=== PATIENT | female | born 1995 | race Caucasian/White ===

== ENCOUNTER 2017-11-15 12:18 | Emergency (ER) | payer OTHER, SELFPAY ==
[2017-11-15] VITALS (11 sets, daily range): BP systolic 96–124; BP diastolic 57–83; PULSE 70–101; RESP 14–18; TEMP 36.6; O2SAT 97–99; BMI 32.8
--- NOTE | 2017-11-15 12:27 | EKG12_ITS ---
Test Reason : DYSRHYTHMIA Blood Pressure : / mmHG Vent. Rate : 076 BPM Atrial Rate : 076 BPM P-R Int : 150 ms QRS Dur : 082 ms QT Int : 414 ms P-R-T Axes : 029 073 018 degrees QTc Int : 465 ms Normal sinus rhythm Normal ECG Confirmed by VINI OMER, PÉREZ ([id number]), editorial writer JOE BRIGHT ([id number]) on 11/17/2017 3:18:37 PM Referred By: LUPE Confirmed By:PÉREZ MARTINI MD
--- NOTE | 2017-11-15 12:35 | PCA ---
NO OLD EKG IN MUSE
[2017-11-15 12:52] LABS: Absolute Neutrophil Count 7.5 X10^3/uL (2.0-7.7); Basophil# 0.08 X10^3/uL; Basophil% 0.7 % (0-1); Eosinophil# 0.11 X10^3/uL; Hematocrit 40.1 % (37-47); Hemoglobin 13.2 g/dl (12.0-15.0); Lymphocyte % 22.1 % (19-41); Mean Corp Hgb Conc 32.9 g/gl (32-36); Mean Corpuscular Hgb 27.8 pg (27.0-32.0); Mean Corpuscular Volume 84.4 fL (81-99); Monocyte# 0.73 X10^3/uL; Monocyte% 6.7 % (0-10); Neutrophil # 7.52 X10^3/uL (2.7-7.7); Neutrophil % 69.2 % (47-70); POSITIVE COUNT NO; POSITIVE DIFFERENTIAL NO; POSITIVE MORPHOLOGY NO; Platelet Count 461 K/mm3 (150-450); RBC Distribution Width SD 39.6 fl (35.1-43.9); Red Blood Count 4.75 M/mm3 (4.2-5.4); White Blood Count 10.9 K/mm3 (4.4-11.0)
[2017-11-15 12:53] LABS: Amphetamine Urine VISTA NEGATIVE (<1000 ng/mL); Barbiturate Urine VISTA NEGATIVE (< 200 ng/mL); Benzodiazepine Urine VISTA NEGATIVE (< 200 ng/mL); Cocaine Urine VISTA NEGATIVE (< 300 ng/mL); Ecstacy Urine VISTA NEGATIVE (< 500 ng/mL); Methadone Urine VISTA NEGATIVE (< 300 ng/mL); PCP Urine VISTA NEGATIVE (< 25 ng/mL); THC Urine VISTA NEGATIVE (< 50 ng/mL); Vista UDS pH Range 6
[2017-11-15] MEDS: 0.9% Normal Saline 1,000 ML 150 ML IV ×2 (12:58→19:21)
[2017-11-15] MEDS: Ondansetron 4 MG/2 ML Vial IV (12:58)
[2017-11-15] MEDS: Activated Charcoal 50 GM/240 ML BOT PO (12:58)
[2017-11-15 13:07] LABS: ALB/GLOB Ratio 0.9 RATIO (0.9-2.4); AST(SGOT) 17 U/L (15-37); Alanine Aminotransfer ALT/SGPT 21 U/L (13-56); Albumin, Serum 3.9 g/dL (3.2-5.0); Alkaline Phosphatase 69 U/L (45-117); Anion Gap 13 (5-15); BUN 10 mg/dL (7-18); BUN/Creat Ratio 10.4 RATIO (10-20); Calcium,Total 9.3 mg/dL (8.5-10.1); Chloride 107 mmol/L (98-107); Creatinine, Serum 0.96 mg/dL (0.55-1.02); EST Glomerular Filtration Rate 78 mL/min (>60); Est Glom Filt Rate - Afr Amer 94 mL/min (>60); Estimated Creatinine Clearance 67.14 ml/min; Globulin 4.2 g/dL (2.2-4.2); Glucose 129 mg/dL (74-106); Potassium 3.4 mmol/L (3.5-5.1); Protein, Total 8.1 g/dL (6.4-8.2); Sodium Level 144 mmol/L (136-145)
[2017-11-15 13:16] LABS: Pregnancy, Serum, hCG Quali. NEGATIVE Negative (0-9 Nonpreg)
[2017-11-15 13:23] LABS: Acetaminophen (Tylenol) Level < 2.0 ug/mL (10.0-30.0); Salicylate < 1.7 mg/dL (2.8-20.0)
--- NOTE | 2017-11-15 14:34 | NURSING ---
SAMUEL, CRISIS, HERE
[2017-11-15 15:26] LABS: Red Blood Cells-Urine 0 SEEN /hpf (0-5)
[2017-11-15 15:44] LABS: Color, Urine Yellow (Yellow); Glucose, Dipstick Normal (Normal); Ketone-Dipstick 5 mg/dl (Negative); Leukocyte Esterase-Dipstick Negative /ul (Negative); Nitrite-Dipstick Negative (Negative); Occult Blood-Urine Negative /ul (Negative); Protein-Dipstick 30 mg/dl (Negative); Specific Gravity, Urine 1.025 (1.002-1.030); Urine Bilirubin Dipstick Negative (Negative); Urine Clarity Cloudy (Clear); Urine Urobilinogen 4 mg/dl (Normal)
[2017-11-15 15:54] LABS: Mucous, Urine 2+ /hpf (<or=2+)
[2017-11-15 15:55] LABS: Hyaline Cast 0-5 SEEN /lpf (0-5)
[2017-11-15 15:56] LABS: Bacteria 2+ /hpf (None Seen); Squamous Epithelial Cells - UA 5-10 SEEN /hpf (5-10)
[2017-11-15 15:57] LABS: Calcium Oxalate Crystals Ur 1+ /hpf (<or=2+); White Blood Cells 0-5 SEEN /hpf (0-5)
--- NOTE | 2017-11-15 16:07 | ED.DCSUM_ITS ---
- ER Visit Summary Date of Service: 11/15/17 Chief Complaint: Overdose History of Present Illness: The patient is a [address] Roshni Saavedra in the counseling center. She reports that approximately 45 minutes ago she took 3010 mg BuSpar in an effort to commit suicide. She reports she did not take anything else. She has vomited once. No blood or emesis. She reports that she remains nauseated. She denies any other complaints. Physical Examination: Vitals: Stable. Afebrile. General: Well-nourished and well-developed. Head: Normocephalic atraumatic. Neck: Supple, no lymphadenopathy. No JVD. Nontender. Cardiovascular: Regular rate and rhythm. No murmurs. Respiratory: No respiratory distress. Clear to auscultation bilaterally. Abdominal: Soft, nontender, nondistended, normal bowel sounds. No guarding, rebound, or peritoneal signs. Back: Nontender. Extremities: Nontender, no edema. Skin: Normal color, no rash. Neurologic: Alert and oriented ?3. Cranial nerves II through XII are intact. Normal strength and sensation. Psych: Normal affect. Test Results: EKG is sinus at 76 with normal intervals. CBC is more for platelets of 461. Chem-7 is marked potassium 3.4 and glucose 129. LFTs are normal. test is negative. Tox screen is normal. Alcohol level 0. Aspirin level is negative. Tylenol level is negative. Emergency Department Course and Treatment: Patient has been observed over the course of 4 hours. She was given Zofran IV and charcoal p.o. Medically she is cleared. Treatment Plan: Patient was discussed the counseling center. They are working on getting her transfer to a psychiatric facility. Disposition: Pending Impression: 1. Suicide attempt. This note was generated with [employer] dictation software. It may contain incorrect words, spelling, and punctuation that were not noted in review of the chart prior to signing ED Disposition - Plan for ED Patient: Chief Complaint: Overdose Referrals: Roshni Saavedra MD [Primary Care Provider] -
--- NOTE | 2017-11-15 21:47 | ED.RN ---
patient has been accepted to [facility]7 b [phone]
--- NOTE | 2017-11-15 22:16 | ED.RN ---
CALLED [facility], [facility], [facility], AND [facility]. NOONE IS ABLE TO TAKE THIS TRANSPORT AT THIS TIME, AND WOULD NOT SCHEDULE A TIME FOR PICKUP
[2017-11-16] VITALS (11 sets, daily range): BP systolic 100–120; BP diastolic 58–94; PULSE 67–89; RESP 16–22; O2SAT 96–99
== END 2017-11-16 10:42 ==
PROVIDERS: Emergency Provider Emergency Medicine; Family Provider Pediatrics; PCP Pediatrics
DX: T43.592A Poisoning by other antipsychotics and neuroleptics, intentional self-harm, initial encounter (principal); R11.2 Nausea with vomiting, unspecified; Y92.9 Unspecified place or not applicable; F31.9 Bipolar disorder, unspecified; F41.9 Anxiety disorder, unspecified; Z79.899 Other long term (current) drug therapy
CPT/HCPCS: 80053; 80307; 80320; 80329; 81001; 84703; 85025; 93005; 96361; 96374; 99285; J7030; A4216; G0480; J2405

== ENCOUNTER 2020-10-31 10:45 | Outpatient (RCR) | payer OTHER, SELFPAY ==
[2017-11-15 12:47] VITALS: BMI 32.8
== END 2020-12-05 23:59 ==
LOC: IMMUN 10:45
PROVIDERS: Referring Provider Family Medicine; Visit Provider Family Medicine
DX: Z23 Encounter for immunization (principal)
CPT/HCPCS: 0001A; 91300

== ENCOUNTER 2022-08-24 06:11 | Emergency (ER) | payer BC, SELFPAY ==
[2022-08-24 06:13] VITALS: BP 130/95; PULSE 83; RESP 15; TEMP 36.4; O2SAT 98; BMI 37.5
--- NOTE | 2022-08-24 06:34 | ED.VIS.GI ---
HPI HPI - GI History of Present Illness Chief Complaint: Nausea/Vomiting Informant: patient Nausea/Vomiting/Emesis GI Symptom: Positive for Nausea and Vomiting Onset: Today Quality: Positive for Coffee ground Episodes: 4 Diarrhea/Melena/Hematochezia GI Symptom: Negative for Diarrhea, Melena or Hematochezia Associated Symptoms Associated Symptoms: Negative for Dysuria, Frequency or Hematuria LMP: 1 week ago Narrative Narrative: Presents with nausea and vomiting that became worse today. Patient states today she started vomiting up coffee-ground type emesis. Patient denies any bright red bleeding. Patient denies any diarrhea, melena, or hematochezia. Patient denies any abdominal pain. Patient states she has had 4 episodes of coffee-ground emesis today. Patient denies any dysuria or hematuria. Patient does admit to some subjective fevers. Patient also admits to headache and lightheadedness. PFSH PFSH Medical History no medical history no medical history Home Medications omeprazole 20 mg capsule,delayed release 20 mg PO DAILY #30 CAPSULES 08/24/22 [Rx Last Taken Unknown] Allergy/AdvReac Type Severity Reaction Status Date / Time No Known Allergies Allergy Verified 08/24/22 06:16 Surgical History no surgical history no surgical history Social History Smoking Status: Never smoker ROS ROS ED Constitutional Constitutional ED: Reports fever(s) and subjective; Denies chills Eyes Eyes: Denies blurry vision or change in vision ENT ENT ED: Denies rhinorrhea or sore throat Cardiovascular Cardiovascular: Denies chest pain or palpitations Respiratory/Chest Respiratory/Chest: Denies cough or dyspnea Gastrointestinal Gastrointestinal: Reports nausea and vomiting; Denies abdominal pain, diarrhea or melena Genitourinary Genitourinary ED: Denies dysuria or hematuria Musculoskeletal Musculoskeletal: Denies back pain or neck pain Integumentary Denies abscess or rash Neurologic Neurologic: Reports headache(s) and weakness Allergic/Immunologic Allergic/Immunologic ED: Denies mouth swelling or urticaria EXAM Physical Exam Const Vital Signs: 08/24/22 06:13 Temperature 97.6 F L Temperature Source Oral Pulse Rate 83 Respiratory Rate 15 Blood Pressure 130/95 H Blood Pressure Mean 106 Pulse Ox 98 Oxygen Delivery Method Room Air Positive well nourished, well developed and obese General Appearance ED: well developed and NAD Nutritional Appearance: obese HEENT Reports moist mucous membranes Neck supple and no JVD Resp normal respiratory effort and clear to auscultation bilaterally Cardio regular rate, regular rhythm and no murmurs GI normal to inspection, nondistended, normoactive bowel sounds and non-tender Palpation: soft Rectal Exam: visual inspection normal and normal sphincter tone Extremity normal to inspection General Extremety ED: Negative for edema or tenderness General Extremity: Negative for edema Neuro oriented x3, CN's II-XII intact bilaterally and no sensory deficits noted Sensorium / Orientation: alert Motor Exam: strength 5/5 throughout Psych mental status grossly normal Skin no rashes or lesions noted MDM MDM MDM Narrative Medical decision making narrative: Differential diagnosis includes gastritis, peptic ulcer disease, duodenal ulcer, upper GI bleeding, pancreatitis, and coagulopathy. CBC will be obtained to assess for leukocytosis and anemia. Comprehensive metabolic profile will be obtained to assess for hepatic function, renal function, and electrolyte abnormality. Lipase will be obtained to assess for pancreatitis. PT was INR and PTT will be obtained to assess for coagulopathy. Stool for occult blood will be obtained to assess for gastrointestinal bleeding. Lab Data Attestation: I reviewed the patient's lab results. Lab results narrative: CBC was reviewed and was within normal limits. PT was INR and PTT were reviewed and were within normal limits. Comprehensive metabolic profile was reviewed and was within normal limits. Lipase was reviewed and was within normal limits. Urinalysis was reviewed and does not show any evidence of urinary tract infection or hematuria. Stool for occult blood was reviewed and was positive. Labs: Laboratory Results - last 24 hr 08/24/22 08/24/22 08/24/22 06:45 06:45 06:45 WBC 5.2 RBC 4.37 Hgb 12.1 Hct 37.9 MCV 86.7 MCH 27.7 MCHC 31.9 L RDW Std Deviation 40.0 RDW Coeff of Angelic 12.6 Plt Count 333 MPV 11.0 Immature Gran % (Auto) 1.000 H Neut % (Auto) 66.1 Lymph % (Auto) 25.9 [place] % (Auto) 5.4 Eos % (Auto) 1.0 Baso % (Auto) 0.6 Absolute Neuts (auto) 3.5 Absolute Lymphs (auto) 1.35 Nucleated RBC % 0 PT 13.9 INR 1.1 APTT 29.4 Sodium 140 Potassium 3.7 Chloride 108 H Carbon Dioxide 24.0 Anion Gap 8 BUN 5 L Creatinine 0.72 Estim Creat Clear Calc 94.47 Est GFR (MDRD) Af Amer 125 Est GFR (MDRD) Non-Af 104 BUN/Creatinine Ratio 6.9 L Glucose 119 H Calcium 8.9 Total Bilirubin 0.30 AST 30 ALT 65 H Alkaline Phosphatase 56 Total Protein 7.3 Albumin 3.5 Globulin 3.8 Albumin/Globulin Ratio 0.9 Lipase 84 Urine Color Urine Clarity Urine pH Ur Specific Deport Urine Protein Urine Glucose (UA) Urine Ketones Urine Occult Blood Urine Nitrite Urine Bilirubin Urine Urobilinogen Ur Leukocyte Esterase 08/24/22 07:30 WBC RBC Hgb Hct MCV MCH MCHC RDW Std Deviation RDW Coeff of Angelic Plt Count MPV Immature Gran % (Auto) Neut % (Auto) Lymph % (Auto) [place] % (Auto) Eos % (Auto) Baso % (Auto) Absolute Neuts (auto) Absolute Lymphs (auto) Nucleated RBC % PT INR APTT Sodium Potassium Chloride Carbon Dioxide Anion Gap BUN Creatinine Estim Creat Clear Calc Est GFR (MDRD) Af Amer Est GFR (MDRD) Non-Af BUN/Creatinine Ratio Glucose Calcium Total Bilirubin AST ALT Alkaline Phosphatase Total Protein Albumin Globulin Albumin/Globulin Ratio Lipase Urine Color Yellow Urine Clarity Clear Urine pH 8.0 Ur Specific Deport 1.010 Urine Protein Negative Urine Glucose (UA) Normal Urine Ketones Negative Urine Occult Blood Negative Urine Nitrite Negative Urine Bilirubin Negative Urine Urobilinogen 1 H Ur Leukocyte Esterase Negative Treatment and Re-Evaluation Narrative: Patient was given IV fluids, Zofran, and a GI cocktail. Patient is feeling better on reevaluation. Patient was advised of her findings. Patient was advised that this could be upper gastrointestinal bleeding from a stomach ulcer but her hemoglobin is still normal and not dropping. Patient was advised that she does not need to be admitted to the hospital for emergent work-up. Patient was advised that this can be done as an outpatient. Patient was given a prescription for omeprazole. Patient was given a referral for Dr. Nicolas from gastroenterology. Patient was instructed to follow-up with her primary care physician as well. Patient understood and was agreeable with plan. All questions were answered. Discharge Plan Triage Chief Complaint: Nausea/Vomiting ED Provider: Dakota Barber Dx/Rx/DC Orders Clinical Impression: Upper gastrointestinal bleeding, Obesity (BMI 30-39.9) Instructions: ED Upper GI Bleeding (Stable) Prescriptions: New omeprazole [omeprazole] 20 mg capsule,delayed release(DR/EC) 20 mg PO DAILY Qty: 30 0RF Primary Care Provider: Care Physician,No Primary Referrals: Samuel Gomes DO [Med Staff - Sales Ledger Administrator] - 5-7 Days Froilan Nicolas DO [Med Staff - Active Staff] - 5-7 Days Care Physician,No Primary [Primary Care Provider] - Disposition Disposition: Home, Self Care
[2022-08-24] MEDS: 0.9% Normal Saline 1,000 ML 1000 ML IV (06:47)
[2022-08-24 06:56] LABS: Absolute Lymphocyte Count 1.35 X10^3/uL (0.83-4.51); Absolute Neutrophil Count 3.5 X10^3/uL (2.0-7.7); Basophil# 0.03 X10^3/uL; Basophil% 0.6 % (0-1); Eosinophil# 0.05 X10^3/uL; Hematocrit 37.9 % (37-47); Hemoglobin 12.1 g/dL (12.0-15.0); Lymphocyte # 1.35 X10^3/ul (0.83-4.51); Lymphocyte % 25.9 % (19-41); Mean Corp Hgb Conc 31.9 g/dL (32-36); Mean Corpuscular Hgb 27.7 pg (27.0-32.0); Mean Corpuscular Volume 86.7 fL (81-99); Monocyte# 0.28 X10^3/uL; Monocyte% 5.4 % (0-10); NRBC Flagged by Analyzer 0 % (0-5); Neutrophil # 3.46 X10^3/uL (2.7-7.7); Neutrophil % 66.1 % (47-70); Platelet Count 333 K/mm3 (150-450); RBC Distribution Width CV 12.6 % (11.6-14.6); Red Blood Count 4.37 M/mm3 (4.2-5.4); White Blood Count 5.2 K/mm3 (4.4-11.0)
[2022-08-24 07:06] LABS: International Normalized Ratio 1.1; Partial Thromboplast Time 29.4 Seconds (24.1-36.2); Prothrombin Time (Protime)PT. 13.9 SECONDS (11.7-14.9)
[2022-08-24] MEDS: Mag Hydrox/Al Hydrox/Simeth 30 ML UDC PO (07:16)
[2022-08-24] MEDS: Ondansetron 4 MG/2 ML Vial IV (07:16)
[2022-08-24 07:22] LABS: ALB/GLOB Ratio 0.9 RATIO (0.9-2.4); AST(SGOT) 30 U/L (15-37); Alanine Aminotransfer ALT/SGPT 65 U/L (13-56); Albumin, Serum 3.5 g/dL (3.2-5.0); Alkaline Phosphatase 56 U/L (45-117); Anion Gap 8 (5-15); BUN 5 mg/dL (7-18); BUN/Creat Ratio 6.9 RATIO (10-20); Calcium,Total 8.9 mg/dL (8.5-10.1); Chloride 108 mmol/L (98-107); Creatinine, Serum 0.72 mg/dL (0.55-1.02); EST Glomerular Filtration Rate 104 mL/min (>60); Est Glom Filt Rate - Afr Amer 125 mL/min (>60); Estimated Creatinine Clearance 94.47 ml/min; Globulin 3.8 g/dL (2.2-4.2); Glucose 119 mg/dL (74-106); Lipase 84 U/L (73-393); Potassium 3.7 mmol/L (3.5-5.1); Protein, Total 7.3 g/dL (6.4-8.2); Sodium Level 140 mmol/L (136-145)
[2022-08-24 07:37] LABS: Bacteria 0 SEEN /hpf (None Seen); Mucous, Urine 0 SEEN /hpf (<or=2+); Red Blood Cells-Urine 0 SEEN /hpf (0-5); White Blood Cells 0 SEEN /hpf (0-5)
[2022-08-24 07:39] LABS: Color, Urine Yellow (Yellow); Glucose, Dipstick Normal (Normal); Ketone-Dipstick Negative (Negative); Leukocyte Esterase-Dipstick Negative /ul (Negative); Nitrite-Dipstick Negative (Negative); Occult Blood-Urine Negative /ul (Negative); Protein-Dipstick Negative (Negative); Urine Bilirubin Dipstick Negative (Negative); Urine Clarity Clear (Clear); Urine Urobilinogen 1 mg/dl (Normal)
[2022-08-24 07:46] LABS: Squamous Epithelial Cells - UA 0-5 SEEN /hpf (5-10)
[2022-08-24] MEDS: Pantoprazole Sodium 20 MG Tablet PO (08:01)
[2022-08-24 08:07] VITALS: RESP 16
== END 2022-08-24 08:07 | disposition home or self-care (01) ==
PROVIDERS: Emergency Provider Emergency Medicine; Visit Provider Emergency Medicine
DX: K92.2 Gastrointestinal hemorrhage, unspecified (principal); E66.9 Obesity, unspecified
CPT/HCPCS: 80053; 81001; 82274; 83690; 85025; 85610; 85730; 96361; 96374; 99284; J7030; A4216; J2405